=== PATIENT | male | born 1985 ===

== ENCOUNTER → 2018-03-20 | Outpatient (CLI) | payer BC | LOC: BMCIMAGING 11:15 | PROVIDERS: ATTEND Emergency Medicine | DX: M25.572 Pain in left ankle and joints of left foot (principal) ==

== ENCOUNTER → 2018-07-10 | Outpatient (CLI) | payer BC | LOC: BMCIMAGING 14:08 | PROVIDERS: ATTEND Internal Medicine | DX: M25.521 Pain in right elbow (principal) ==